=== PATIENT | male | born 1965 | race Caucasian/White ===

== ENCOUNTER 2017-12-28 08:50 | Emergency (ER) | payer BC ==
--- NOTE | 2017-12-28 09:26 | EDM.PDOC ---
ED HPI GENERAL MEDICAL PROBLEM - General Chief Complaint: Skin Complaint Stated Complaint: RASH Time Seen by Provider: 12/28/17 09:02 Source of Information: Reports: Patient History Limitations: Reports: No Limitations - History of Present Illness INITIAL COMMENTS - FREE TEXT/NARRATIVE: 52-year-old male with chief complaint of rash. He states he's had it for about 3 weeks. It started as an abrasion on his left leg. He then quickly developed a diffuse itchy rash involving both legs and his trunk. He hasn't had involvement of his face or upper extremities. Rash is very itchy and mildly painful. He's been using valacyclovir which was prescribed by his primary care physician over the phone due to initial concern for shingles. He's also been taking occasional Benadryl. Calamine lotion has been helpful. Rash doesn't seem to be getting any better so he decided to come in for evaluation. No fever. No cough, shortness of breath, chest pain, abdominal pain, vomiting, or other specific symptoms. He feels vaguely weak/fatigue. No known exposure to new detergents or chemicals or other products that may have triggered this. He works in the [employer]. No history of similar symptoms previously. He also takes lisinopril and simvastatin , states he's been taking these medications for a long time. Generalized Pain Score (Numeric/FACES): 5 - Related Data Allergies Allergy/AdvReac Type Severity Reaction Status Date / Time No Known Allergies Allergy Verified 12/28/17 08:58 Home Meds: Home Meds Aspirin [Ecotrin] 81 mg PO DAILY 12/28/17 [History] Cetirizine [ZyrTEC] 10 mg PO DAILY #30 tab 12/28/17 [Rx] Lisinopril 40 mg PO DAILY 12/28/17 [History] Omeprazole 20 mg PO DAILY 12/28/17 [History] Simvastatin [Zocor] 40 mg PO DAILY 12/28/17 [History] buPROPion HCl [Wellbutrin SR] 150 mg PO DAILY 12/28/17 [History] oxyCODONE 5 mg PO QID PRN #8 tab 12/28/17 [Rx] predniSONE [Prednisone] 60 mg PO DAILY #21 tablet 12/28/17 [Rx] valACYclovir [Valtrex] 1,000 mg PO TID 12/28/17 [History] Past Medical History Cardiovascular History: Reports: High Cholesterol, Hypertension Gastrointestinal History: Reports: GERD Social & Family History - Tobacco Use Smoking Status *Q: Current Every Day Smoker Years of Tobacco use: 40 Packs/Tins Daily: 0.2 - Caffeine Use Caffeine Use: Reports: Coffee - Alcohol Use Days Per Week of Alcohol Use: 7 Number of Drinks Per Day: 7 Total Drinks Per Week: 49 - Recreational Drug Use Recreational Drug Use: No ED ROS GENERAL - Review of Systems Review Of Systems: See Below Constitutional: Denies: Fever HEENT: Reports: No Symptoms Respiratory: Denies: Shortness of Breath Cardiovascular: Denies: Chest Pain Endocrine: Reports: Fatigue GI/Abdominal: Denies: Abdominal Pain : Reports: No Symptoms Musculoskeletal: Reports: No Symptoms Skin: Reports: Pruritis, Rash Neurological: Reports: No Symptoms Psychiatric: Reports: No Symptoms Hematologic/Lymphatic: Reports: No Symptoms Immunologic: Reports: No Symptoms ED EXAM, SKIN/RASH Exam: See Below Exam Limited By: No Limitations General Appearance: Alert, WD/WN, No Apparent Distress Eye Exam: Bilateral Eye: Normal Inspection Ears: Normal External Exam Nose: Normal Inspection Throat/Mouth: Normal Inspection, Normal Oropharynx, Normal Voice, No Airway Compromise Head: Atraumatic, Normocephalic Neck: Normal Inspection, Supple, Non-Tender, Full Range of Motion Respiratory/Chest: No Respiratory Distress, Lungs Clear, Normal Breath Sounds, No Accessory Muscle Use Cardiovascular: Normal Peripheral Pulses, Regular Rate, Rhythm, No Edema, No Murmur GI/Abdominal: Soft, Non-Tender, No Distention. No: Rebound Extremities: Normal Inspection Neurological: Alert, Oriented, Normal Cognition, No Motor/Sensory Deficits Psychiatric: Normal Affect, Normal Mood Skin: Warm, Dry, Other (Diffuse papular rash affecting bilateral lower extremities and trunk. There a few lesions on the arms but for the most part arms, palms, scalp and face are spared. There are some scattered excoriations. In areas it is nearly confluent. On the legs it does appear most pronounced at the base of hair follicles. There are no pustules. No discharge or crusting. No vesicles.) Associated features: No: Warmth, Tenderness, Induration Course - Vital Signs Last Recorded V/S: Last Vital Signs Temp 36.3 C 12/28/17 09:02 Pulse 95 12/28/17 09:02 Resp 14 12/28/17 09:02 BP 154/93 H 12/28/17 09:02 Pulse Ox 98 12/28/17 09:02 - Orders/Labs/Meds Labs: Laboratory Tests 12/28/17 12/28/17 Range/Units 09:35 09:35 WBC 8.05 (4.23-9.07) K/mm3 RBC 4.70 (4.63-6.08) M/mm3 Hgb 15.2 (13.7-17.5) gm/L Hct 43.7 (40.1-51.0) % MCV 93.0 H (79.0-92.2) fl MCH 32.3 H (25.7-32.2) pg MCHC 34.8 (32.2-35.5) g/dl RDW Std Deviation 44.1 H (35.1-43.9) fL Plt Count 239 (163-337) K/mm3 MPV 9.6 (9.4-12.3) fl Neut % (Auto) 69.9 H (34.0-67.9) % Lymph % (Auto) 15.9 L (21.8-53.1) % [place] % (Auto) 7.7 (5.3-12.2) % Eos % (Auto) 5.8 (0.8-7.0) Baso % (Auto) 0.5 (0.1-1.2) % Neut # (Auto) 5.62 H (1.78-5.38) K/mm3 Lymph # (Auto) 1.28 L (1.32-3.57) K/mm3 [place] # (Auto) 0.62 (0.30-0.82) K/mm3 Eos # (Auto) 0.47 (0.04-0.54) K/mm3 Baso # (Auto) 0.04 (0.01-0.08) K/mm3 Sodium 140 (136-145) mEq/L Potassium 4.3 (3.5-5.1) mEq/L Chloride 104 (98-107) mEq/L Carbon Dioxide 26 (21-32) mEq/L Anion Gap 14.3 (5-15) BUN 17 (7-18) mg/dL Creatinine 1.1 (0.7-1.3) mg/dL Est Cr Clr Drug Dosing 90.30 mL/min Estimated GFR (MDRD) > 60 (>60) mL/min BUN/Creatinine Ratio 15.5 (14-18) Glucose 97 (74-106) mg/dL Calcium 9.1 (8.5-10.1) mg/dL Total Bilirubin 1.2 H (0.2-1.0) mg/dL AST 32 (15-37) U/L ALT 34 (16-63) U/L Alkaline Phosphatase 76 (46-116) U/L Total Protein 7.4 (6.4-8.2) g/dl Albumin 3.7 (3.4-5.0) g/dl Globulin 3.7 gm/dL Albumin/Globulin Ratio 1.0 (1-2) Meds: Medications Discontinued Medications Generic Name Dose Route Start Last Admin Trade Name Freq PRN Reason Stop Dose Admin Loratadine 10 mg 12/28/17 10:27 Claritin PO 12/28/17 10:28 ONETIME ONE Prednisone 60 mg 12/28/17 10:27 Prednisone PO 12/28/17 10:28 ONETIME ONE - Re-Assessments/Exams Free Text/Narrative Re-Assessment/Exam: 12/28/17 10:28 Labs including CBC and chemistry are within normal limits. I do suspect an allergic mediated mechanism for his rash. Discussed allergen avoidance and will place on a short course of steroid medication given the extensiveness. We'll also prescribe antihistamine. Encouraged to follow up with primary care provider as soon as possible. Departure - Departure Time of Disposition: 10:29 Disposition: Home, Self-Care 01 Clinical Impression: Rash - Discharge Information Prescriptions: Cetirizine [ZyrTEC] 10 mg PO DAILY #30 tab oxyCODONE 5 mg PO QID PRN #8 tab PRN Reason: Pain predniSONE [Prednisone] 60 mg PO DAILY #21 tablet Referrals: PCP,Not In Area [Primary Care Provider] - Forms: ED Department Discharge Additional Instructions: Take prednisone and cetirizine as prescribed. Follow-up with a primary care provider as soon as possible for further care. You may call [phone] to schedule with a provider here. Consider using a hypoallergenic laundry detergent. Okay to continue using calamine lotion for comfort. Return to the emergency department if you have worsening symptoms or fever or other concerning symptoms. Take ibuprofen and/or acetaminophen for pain. Take oxycodone for severe pain only. No driving or working while taking this medication as it can cause sleepiness or confusion. 12/28/17 10:31
[2017-12-28] MEDS ORDERED: Loratadine 10 MG Tab PO ONE (10:27)
[2017-12-28] MEDS ORDERED: predniSONE 20 MG Tab PO ONE (10:27)
== END 2017-12-28 11:35 | disposition home or self-care (01) ==
LOC: JD.ED 08:50
DX: R21 Rash and other nonspecific skin eruption (principal); E78.00 Pure hypercholesterolemia, unspecified; I10 Essential (primary) hypertension; F17.210 Nicotine dependence, cigarettes, uncomplicated; Z79.82 Long term (current) use of aspirin; Z79.899 Other long term (current) drug therapy
CPT/HCPCS: 36415; 80053; 85025; 99283; A9270